=== PATIENT | male | born 1975 | race Caucasian/White ===

== ENCOUNTER 2016-11-08 08:23 | Emergency (ER) | payer OTHER ==
[2016-11-08] MEDS ORDERED: MOTRIN PO ONE (12:54)
--- NOTE | 2016-11-08 12:54 | Emergency Department Report ---
ED Abdominal Pain HPI - General Chief Complaint: Rectal Pain Stated Complaint: HEMORRHOIDS Time Seen by Provider: 11/08/16 12:50 Source: patient, family Mode of arrival: Wheelchair Limitations: Language Barrier - History of Present Illness Initial Comments: Patient reports hemorrhoids that started one week ago and worsening in the last two days. He reports using [id number] Preparation H suppositories and cream, however without any relief Complaint: other (hemorrhoids) Onset/Timin -: week(s) Radiation: other (rectum) Migration to: no migration Severity: severe Severity scale (0 -10): 7 Quality: aching Consistency: constant Improves With: nothing Worsens With: bowel movement, movement Context: other (none) Associated Symptoms: constipation. denies: nausea, vomiting, diarrhea, fever, chills, dysuria, hematemesis, hematochezia, melena, hematuria, anorexia, syncope Treatments Prior to Arrival: other ([id number] Preparation H suppositories and cream) - Related Data Home Medications Medication Instructions Recorded Confirmed Last Taken Butalb/Acetaminophen/Caffeine 1 cap PO Q6HR PRN 11/08/16 11/08/16 Unknown [Fioricet 50-300-40 mg CAP] Previous Rx's Medication Instructions Recorded Last Taken Type Docusate Sodium [Colace] 100 mg PO BID PRN #30 capsule 11/08/16 Unknown Rx Hydrocortisone/Pramoxine [Analpram 4 gm RC QID #1 cream.appl 11/08/16 Unknown Rx Hc 2.5%-1% Crm Single] Ibuprofen [Motrin 800 MG tab] 800 mg PO Q8HR PRN #30 tablet 11/08/16 Unknown Rx Allergies Allergy/AdvReac Type Severity Reaction Status Date / Time No Known Allergies Allergy Unverified 11/08/16 08:46 ED Review of Systems ROS: Stated complaint: HEMORRHOIDS Other details as noted in HPI Constitutional: denies: chills, diaphoresis, fever, malaise, weakness Respiratory: denies: cough, orthopnea, shortness of breath, SOB with exertion, SOB at rest, stridor, wheezing Cardiovascular: denies: chest pain, palpitations, dyspnea on exertion, orthopnea , edema, syncope, paroxysmal nocturnal dyspnea Gastrointestinal: constipation, other (hemorrhoids). denies: abdominal pain, nausea, vomiting, diarrhea Genitourinary: denies: urgency, dysuria, frequency, hematuria, discharge, testicular pain, testicular mass Musculoskeletal: denies: back pain, joint swelling, arthralgia, myalgia Skin: denies: rash, lesions, change in color, change in hair/nails, pruritus ED Past Medical Hx - Past Medical History Hx Headaches / Migraines: Yes - Surgical History Past Surgical History?: No - Social History Smoking Status: Never Smoker Substance Use Type: Alcohol - Medications Home Medications: Home Medications Medication Instructions Recorded Confirmed Last Taken Type Butalb/Acetaminophen/Caffeine 1 cap PO Q6HR PRN 11/08/16 11/08/16 Unknown History [Fioricet 50-300-40 mg CAP] Docusate Sodium [Colace] 100 mg PO BID PRN #30 capsule 11/08/16 Unknown Rx Hydrocortisone/Pramoxine [Analpram 4 gm RC QID #1 cream.appl 11/08/16 Unknown Rx Hc 2.5%-1% Crm Single] Ibuprofen [Motrin 800 MG tab] 800 mg PO Q8HR PRN #30 tablet 11/08/16 Unknown Rx ED Physical Exam - General Limitations: Language Barrier General appearance: alert, in no apparent distress, other (uncomfortable) - ENT ENT exam: Present: normal exam, mucous membranes moist. Absent: mucous membranes dry - Respiratory Respiratory exam: Present: normal lung sounds bilaterally. Absent: respiratory distress, wheezes, rales, rhonchi, stridor, chest wall tenderness, accessory muscle use, decreased breath sounds, prolonged expiratory - Cardiovascular Cardiovascular Exam: Present: regular rate, normal rhythm, normal heart sounds. Absent: systolic murmur, diastolic murmur, rubs, gallop, clicks, JVD, S3, S4 - GI/Abdominal GI/Abdominal exam: Present: soft, normal bowel sounds. Absent: distended, tenderness, guarding, rebound, rigid - Rectal Rectal exam: Present: normal rectal tone, hemorrhoids (first degree, fleshy, no protrusion, prolapse, bleeding or thrombos), tenderness ( rectal area). Absent : black stool, bloody stool, fecal impaction, mass - Back Exam Back exam: Present: normal inspection. Absent: CVA tenderness (R), CVA tenderness (L) - Neurological Exam Neurological exam: Present: alert, oriented X3, CN II-XII intact, normal gait, reflexes normal. Absent: motor sensory deficit - Skin Skin exam: Present: warm, dry, intact, normal color. Absent: rash ED Course Vital Signs 11/08/16 08:40 Temperature 98.1 F Pulse Rate 89 Respiratory 16 Rate Blood Pressure 108/72 O2 Sat by Pulse 100 Oximetry ED Medical Decision Making - Lab Data Vital Signs 11/08/16 08:40 Temperature 98.1 F Pulse Rate 89 Respiratory 16 Rate Blood Pressure 108/72 O2 Sat by Pulse 100 Oximetry - Medical Decision Making During the course of ED, analgesics was ordered. Patient was sent home with prescriptions for Colace, ibuprofen and Analpram HC, instructed to do warm sitz baths with Epsom salt three times a day and after each bowel movement, increase fluid and fiber intake and eat more vegetables and fruits, he verbalized understanding - Differential Diagnosis Hemorrhoids, Rectal Prolapse, Anal fissure Critical care attestation.: If time is entered above; I have spent that time in minutes in the direct care of this critically ill patient, excluding procedure time. ED Disposition Clinical Impression: Hemorrhoids Qualifiers: Hemorrhoid type: first degree Qualified Code(s): K64.0 - First degree hemorrhoids Disposition: DISCHARGED TO HOME OR SELFCARE Is pt being admited?: No Does the pt Need Aspirin: No Condition: Stable Instructions: Hemorrhoids (ED) Additional Instructions: Take medication as directed. Warm sitz baths with Epsom salt for 15 minutes 3 times a day and after each bowel movement. Ear high-fiber diet such as fresh fruits and vegetables and increase bran intake. Drink 8-10 glasses of water per day. Follow up with the selective referrals given at discharge. Return back to the ED for worsening symptoms or concerns Prescriptions: Hydrocortisone/Pramoxine [Analpram Hc 2.5%-1% Crm Single] 4 gm RC QID #1 cream.appl Docusate Sodium [Colace] 100 mg PO BID PRN #30 capsule PRN Reason: Stool Softner Ibuprofen [Motrin 800 MG tab] 800 mg PO Q8HR PRN #30 tablet PRN Reason: Pain Referrals: DANIEL GONZALEZ MD [Staff Physician] - 3-5 Days MEGHANN CHIRINOS MD [Staff Physician] - 3-5 Days Time of Disposition: 13:12
[2016-11-08 14:33] VITALS: BP 110/78
== END 2016-11-08 13:30 | disposition home or self-care (01) ==
LOC: ED 08:23
DX: K64.0 First degree hemorrhoids (principal)
CPT/HCPCS: 99283

== ENCOUNTER 2020-12-21 14:58 | Emergency (ER) | payer MEDICAID, OTHER ==
[2020-12-21] MEDS ORDERED: SODIUM CHLORIDE 0.9% 1000 ML IV SOLN IV ONE (15:06)
--- NOTE | 2020-12-21 15:10 | Event Note ---
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 Further treatment and workup at subsequent clinical providers discretion. Patient/guardian urged not to elope from the ED as their condition may be serious if not clinically assessed and managed. Initial orders include: code sepsis initiated
[2020-12-21] MEDS ORDERED: ACETAMINOPHEN 325 MG TAB PO ONE (15:11)
[2020-12-21 15:34] LABS: Basophils % (Auto) 0.3 % (0.0-1.8); Eosinophils # (Auto) 0.1 K/mm3 (0.0-0.4); Eosinophils % (Auto) 0.4 % (0.0-4.3); Hematocrit 48.5 % (35.5-45.6); Hemoglobin 16.8 gm/dl (11.8-15.2); Lymphocytes # (Auto) 3.2 K/mm3 (1.2-5.4); Lymphocytes % (Auto) 26.3 % (13.4-35.0); Mean Corpuscular HGB Conc 35 % (32-34); Mean Corpuscular Volume 101 fl (84-94); Monocytes # (Auto) 1.3 K/mm3 (0.0-0.8); Monocytes % (Auto) 10.2 % (0.0-7.3); Platelet Count 194 K/mm3 (140-440); Red Blood Count 4.83 M/mm3 (3.65-5.03); Red Cell Distribution Width 14.2 % (13.2-15.2)
--- NOTE | 2020-12-21 15:35 | Emergency Department Report ---
ED General Adult HPI - General Chief complaint: Weakness Stated complaint: weak PUI?: Yes Time Seen by Provider: 12/21/20 15:06 Source: patient Mode of arrival: Ambulatory Limitations: No Limitations - History of Present Illness Initial comments: The patient was evaluated in the emergency department for symptoms described in the history of present illness. He/she was evaluated in the context of the global COVID-19 pandemic, which necessitated consideration that the patient might be at risk for infection with the virus that causes COVID-19. Institutional protocols and algorithms that pertain to the evaluation of patients at risk for COVID-19 are in a state of rapid change based on information released by regulatory bodies including the CDC and federal and state organizations. These policies and algorithms were followed during the patient's care in the emergency department. Please note that these policies, procedures and recommendations changed on a rapid basis. During the entire history and physical examination, I had on complete personal protective equipment. This is a 45-year-old gentleman. 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 He also has a history of HIV, and is currently maintained on genyova He reports he is not currently on chemotherapy or immunosuppressive therapy He presents to the ER today with a complaint of painless dizziness and generalized weakness. No loss of taste or smell. No vomiting, no chest pain, no abdominal pain, no shortness of breath, no dysuria. No lower extremity c ramping. Chronic numbness to his right lower extremity. Does not have sick exposures that he is aware of. Indicates no exacerbating or relieving factors at this time. Denies loss of vision. Denies headache and neck pain. -: Gradual, days(s) Severity scale (0 -10): 6 Consistency: constant Improves with: rest Worsens with: movement - Related Data Previous Rx's Medication Instructions Recorded Last Taken Type Acetaminophen [Non-Aspirin Extra 500 mg PO Q6HR PRN #30 tablet 12/21/20 Unknown Rx Strength] Albuterol Sulfate [Proair 90 mcg IH Q4HR PRN #2 aer.pow.ba 12/21/20 Unknown Rx Respiclick] Ondansetron [Zofran Odt] 4 mg PO Q8HR PRN #20 tab.rapdis 12/21/20 Unknown Rx Allergies Allergy/AdvReac Type Severity Reaction Status Date / Time No Known Allergies Allergy Verified 12/21/20 15:55 ED Review of Systems ROS: Stated complaint: DIZZY/RT LEG SWOLLEN/FEVER Other details as noted in HPI Constitutional: malaise. denies: fever Eyes: denies: eye discharge, vision change ENT: denies: epistaxis Respiratory: denies: cough, shortness of breath Cardiovascular: denies: chest pain Gastrointestinal: denies: abdominal pain Genitourinary: denies: urgency, dysuria, testicular pain Musculoskeletal: myalgia. denies: back pain Neurological: weakness. denies: headache Hematological/Lymphatic: denies: easy bleeding ED Past Medical Hx - Past Medical History Hx Headaches / Migraines: Yes Additional medical history: LEUKMIA/ HIV - Social History Smoking Status: Never Smoker Substance Use Type: Alcohol - Medications Home Medications: Home Medications Medication Instructions Recorded Confirmed Last Taken Type Acetaminophen [Non-Aspirin Extra 500 mg PO Q6HR PRN #30 tablet 12/21/20 Unknown Rx Strength] Albuterol Sulfate [Proair 90 mcg IH Q4HR PRN #2 aer.pow.ba 12/21/20 Unknown Rx Respiclick] Ondansetron [Zofran Odt] 4 mg PO Q8HR PRN #20 tab.rapdis 12/21/20 Unknown Rx ED Physical Exam - General Limitations: No Limitations General appearance: alert, in no apparent distress - Head Head exam: Present: atraumatic, normocephalic - Eye Eye exam: Present: normal appearance, PERRL, EOMI, other (Visual acuity intact to finger counting, color perception, reading at a close distance). Absent: nystagmus - ENT ENT exam: Present: normal exam, normal orophraynx, mucous membranes moist, normal external ear exam - Neck Neck exam: Present: normal inspection, full ROM. Absent: tenderness, meningismus - Respiratory Respiratory exam: Present: normal lung sounds bilaterally. Absent: respiratory distress, wheezes, rales, rhonchi, stridor, decreased breath sounds - Cardiovascular Cardiovascular Exam: Present: normal rhythm, tachycardia, normal heart sounds. Absent: bradycardia, irregular rhythm, systolic murmur, diastolic murmur, rubs, gallop - GI/Abdominal GI/Abdominal exam: Present: soft. Absent: distended, tenderness, guarding, rebound, rigid, pulsatile mass - Rectal Rectal exam: Present: deferred - Extremities Exam Extremities exam: Present: normal inspection, full ROM, other (2+ pulses noted in the bilateral upper and lower extremities. There is no palpable cord. negative Homans sign. Muscular compartments are soft. The pelvis is stable.). Absent: pedal edema, calf tenderness - Back Exam Back exam: Present: normal inspection, full ROM. Absent: tenderness, CVA tenderness (R), CVA tenderness (L), paraspinal tenderness, vertebral tenderness - Neurological Exam Neurological exam: Present: alert, normal gait, motor sensory deficit (Chronic decrease in sensation to light touch in the right lower extremity, from the knee distal. Otherwise, 5 out of 5 strength in 4 extremities, sensation is otherwise intact in 4 extremities to light touch.), other (There is no facial droop. The tongue is midline. The extraocular movements are intact bilaterally. V1, V2, V3 intact bilaterally. Hearing is intact bilaterally, shoulder shrug is intact bilaterally, and the tongue is midline.) - Psychiatric Psychiatric exam: Present: normal affect, normal mood - Skin Skin exam: Present: warm, dry, intact, normal color. Absent: rash ED Course Vital Signs 12/21/20 12/21/20 12/21/20 15:04 15:53 15:55 Temperature 100.8 F H Pulse Rate 122 H 93 H 94 H Respiratory 20 18 Rate Blood Pressure 114/72 97/69 [Right] O2 Sat by Pulse 96 95 Oximetry 12/21/20 12/21/20 16:58 17:37 Temperature Pulse Rate 82 74 Respiratory 20 20 Rate Blood Pressure 101/61 106/68 [Right] O2 Sat by Pulse 97 96 Oximetry - Reevaluation(s) Reevaluation #1: 12/21/20 17:14 Patient did not desaturate during trial of ambulation. Would expect tachycardia during Covid. From a Covid perspective, patient does not meet criteria for admission/hospitalization, he is not not hypoxic, protecting his airway, not encephalopathic, and tolerating liquid feeds. 12/21/20 17:43 urinalysis unremarkable. Tachycardia improved. No hypoxia. Patient appears quite comfortable. Would need to follow-up as an outpatient for repeat checkup/evaluation. ED Medical Decision Making - Lab Data Result diagrams: 12/21/20 15:15 12/21/20 15:15 Vital Signs 12/21/20 12/21/2021 15:04 15:53 15:55 Temperature 100.8 F H Pulse Rate 122 H 93 H 94 H Respiratory 20 18 Rate Blood Pressure 114/72 97/69 [Right] O2 Sat by Pulse 96 95 Oximetry Lab Results 12/21/20 12/21/20 12/21/20 Range/Units 15:15 15:15 15:15 WBC 12.3 H (4.5-11.0) K/mm3 RBC 4.83 (3.65-5.03) M/mm3 Hgb 16.8 H (11.8-15.2) gm/dl Hct 48.5 H (35.5-45.6) % MCV 101 H (84-94) fl MCH 35 H (28-32) pg MCHC 35 H (32-34) % RDW 14.2 (13.2-15.2) % Plt Count 194 (140-440) K/mm3 Lymph % (Auto) 26.3 (13.4-35.0) % [place] % (Auto) 10.2 H (0.0-7.3) % Eos % (Auto) 0.4 (0.0-4.3) % Baso % (Auto) 0.3 (0.0-1.8) % Lymph # (Auto) 3.2 (1.2-5.4) K/mm3 [place] # (Auto) 1.3 H (0.0-0.8) K/mm3 Eos # (Auto) 0.1 (0.0-0.4) K/mm3 Baso # (Auto) 0.0 (0.0-0.1) K/mm3 Seg Neutrophils % 62.8 (40.0-70.0) % Seg Neutrophils # 7.7 (1.8-7.7) K/mm3 Sodium 134 L (137-145) mmol/L Potassium 3.9 (3.6-5.0) mmol/L Chloride 98.6 (98-107) mmol/L Carbon Dioxide 25 (22-30) mmol/L Anion Gap 14 mmol/L BUN 22 H (9-20) mg/dL Creatinine 1.2 (0.8-1.3) mg/dL Estimated GFR > 60 ml/min BUN/Creatinine Ratio 18 % Glucose 112 H (75-100) mg/dL Lactic Acid 1.20 (0.7-2.0) mmol/L Calcium 8.7 (8.4-10.2) mg/dL Total Bilirubin 0.60 (0.1-1.2) mg/dL AST 12 (5-40) units/L ALT 10 (7-56) units/L Alkaline Phosphatase 54 (35-129) units/L Total Protein 7.3 (6.3-8.2) g/dL Albumin 3.9 (3.9-5) g/dL Albumin/Globulin Ratio 1.1 % - EKG Data -: EKG Interpreted by Mo - EKG Data 12/21/20 16:10 The EKG today shows a sinus rhythm, tachycardia, 104 bpm. There is a normal axis, with motion artifact, QTC within normal limits, the EKG is not a STEMI, t here is borderline high left ventricular voltage. - Radiology Data Radiology results: pending, report reviewed, image reviewed NONENHANCED CT SCAN OF THE HEAD: INDICATION / CLINICAL INFORMATION: 45 years Male; dizzy and wweak. TECHNIQUE: Routine CT head without contrast. All CT scans at this location are performed using CT dose reduction for ALARA by means of automated exposure control. COMPARISON: None. FINDINGS: BRAIN / INTRACRANIAL CONTENTS: No acute hemorrhage, mass effect, midline shift, hydrocephalus, or acute, large territorial infarct. No chronic infarct or focal atrophy. Normal brain volume and ventricular/sulcal size for age. No significant white matter abnormality. CRANIOCERVICAL JUNCTION: No significant abnormality. ORBITS: No significant abnormality of visualized orbits. SINUSES / MASTOIDS: No significant abnormality of the visualized paranasal sinuses or mastoid air cells. ADDITIONAL FINDINGS: None. IMPRESSION: No acute focal parenchymal lesion Signer Name: Katarina Lucas MD Signed: 12/21/2020 2:54 PM Workstation Name: [id number] CHEST 1 VIEW 1534 INDICATION / CLINICAL INFORMATION: dizziness, fever, sepsis protocol COMPARISON: None available. FINDINGS: SUPPORT DEVICES: None HEART / MEDIASTINUM: No significant abnormality. LUNGS / PLEURA: No significant pulmonary or pleural abnormality. No pneumothorax. ADDITIONAL FINDINGS: No significant additional findings. IMPRESSION: No significant acute abnormality Signer Name: Hank Win MD Signed: 12/21/2020 2:48 PM Workstation Name: [id number] - Medical Decision Making Differential diagnosis, including but not limited to: Viral syndrome, pneumonia, urinary tract infection, COVID-19, HIV positive, history of leukemia, chronic right lower extremity neuropathy Assessment and plan: 45-year-old gentleman, who is febrile, low-grade, with tachycardia, now resolved, presenting during the COVID-19 pandemic, with complai nt of malaise, fatigue and dizziness. He walks with a steady gait, has a GCS of 15, NIH score of 0, no past-pointing, no pronator drift, normal gait, normal [id number], with unremarkable laboratory studies. Given history of HIV leukemia, CT scan of the brain was obtained, to evaluate for structural disease, and was unremarkable. X-ray of the chest is unremarkable. Urinalysis is pending at this time. Patient denies chills and rigors therefore I think bacteremia is very unlikely. He also reports that he is compliant with his antiviral therapy. Patient will be maintained on isolation precautions. He will be given fluids and acetaminophen. I have requested that nursing team reconcile his medications. We will also provide a 5-minute ambulation test on room air to assess patient's O2 sats. Critical care attestation.: If time is entered above; I have spent that time in minutes in the direct care of this critically ill patient, excluding procedure time. ED Disposition Clinical Impression: Acute febrile illness, Suspected 2019 novel coronavirus infection Disposition: DC-01 TO HOME OR SELFCARE Is pt being admited?: No Does the pt Need Aspirin: No Condition: Good Instructions: COVID-19 Additional Instructions: As we discussed, the patient most likely has novel coronavirus/COVID. the symptoms of COVID will typically persist 10 to 14 days. There is no cure at this time for COVID. Please make certain to self isolate and self quarantine, follow-up with an outpatient primary care doctor within the next 3 to 5 days, wash hands with soap and water frequently, thoroughly and often, patient may take the prescribed medications as needed and directed. Advance diet and drink plenty of fluids as tolerated. Avoid interactions with the very elderly, very young, and those with chronic medical conditions. Return to the emergency room right away with new pain, worsening pain, migration of pain, projectile vomiting, change in mental status, confusion, inability to tolerate liquid feeds, new, worsened or different symptoms not present on the initial emergency room evaluation. Prescriptions: Acetaminophen [Non-Aspirin Extra Strength] 500 mg PO Q6HR PRN #30 tablet PRN Reason: Pain , Severe (7-10) Albuterol Sulfate [Proair Respiclick] 90 mcg IH Q4HR PRN #2 aer.pow.ba PRN Reason: Wheezing Ondansetron [Zofran Odt] 4 mg PO Q8HR PRN #20 tab.rapdis PRN Reason: Nausea Referrals: [facility] [Provider Group] - 3-5 Days
--- NOTE | 2020-12-21 15:52 | XRay Report ---
CHEST 1 VIEW 1534 INDICATION / CLINICAL INFORMATION: dizziness, fever, sepsis protocol COMPARISON: None available. FINDINGS: SUPPORT DEVICES: None HEART / MEDIASTINUM: No significant abnormality. LUNGS / PLEURA: No significant pulmonary or pleural abnormality. No pneumothorax. ADDITIONAL FINDINGS: No significant additional findings. IMPRESSION: No significant acute abnormality Signer Name: Hank Win MD Signed: 12/21/2020 3:48 PM Workstation Name: [id number]
--- NOTE | 2020-12-21 15:59 | Cat Scan Report ---
NONENHANCED CT SCAN OF THE HEAD: INDICATION / CLINICAL INFORMATION: 45 years Male; dizzy and wweak. TECHNIQUE: Routine CT head without contrast. All CT scans at this location are performed using CT dos e reduction for ALARA by means of automated exposure control. COMPARISON: None. FINDINGS: BRAIN / INTRACRANIAL CONTENTS: No acute hemorrhage, mass effect, midline shift, hydrocephalus, or acu te, large territorial infarct. No chronic infarct or focal atrophy. Normal brain volume and ventricul ar/sulcal size for age. No significant white matter abnormality. CRANIOCERVICAL JUNCTION: No significant abnormality. ORBITS: No significant abnormality of visualized orbits. SINUSES / MASTOIDS: No significant abnormality of the visualized paranasal sinuses or mastoid air ynes ls. ADDITIONAL FINDINGS: None. IMPRESSION: No acute focal parenchymal lesion Signer Name: Katarina Lucas MD Signed: 12/21/2020 3:54 PM Workstation Name: [id number]
[2020-12-21 16:01] LABS: Alanine Aminotransferase 10 units/L (7-56); Albumin 3.9 g/dL (3.9-5); BUN/Creatinine Ratio 18; Blood Urea Nitrogen 22 mg/dL (9-20); Calcium 8.7 mg/dL (8.4-10.2); Hemolysis Index 7
[2020-12-21] MEDS ORDERED: LACTATED RINGERS 2,000 ML IV ONE (16:17)
[2020-12-21 17:26] LABS: Bilirubin,Urine NEG (Negative); Blood,Urine SM (Negative); Color,Urine Amber (Yellow); Hyaline Casts,Urine 1 /LPF; Mucus,Urine 2+ /HPF
[2020-12-21 18:36] VITALS: BP 107/69
== END 2020-12-21 18:51 | disposition home or self-care (01) ==
LOC: ED 14:58
DX: R50.9 Fever, unspecified (principal); Z20.822 Contact with and (suspected) exposure to COVID-19; G43.909 Migraine, unspecified, not intractable, without status migrainosus; Z79.899 Other long term (current) drug therapy
CPT/HCPCS: 36415; 70450; 71045; 80053; 81001; 82140; 82550; 83735; 85025; 96360; 99285; J7030; 93005

== ENCOUNTER 2022-02-22 07:03 | Emergency (ER) | payer MEDICAID ==
[2022-02-22] MEDS ORDERED: dexAMETHasone 20 MG/5 ML VIAL IV ONE (10:20)
[2022-02-22] MEDS ORDERED: METOCLOPRAMIDE 10 MG/2 ML INJ IV ONE (10:20)
[2022-02-22] MEDS ORDERED: ACETAMINOPHEN 500 MG TAB PO ONE (10:20)
[2022-02-22] MEDS ORDERED: SODIUM CHLORIDE 0.9% 1000 ML 1,000 ML IV ONE (10:20)
[2022-02-22] MEDS ORDERED: diphenhydrAMINE 50 MG/ML VIAL IV ONE (10:20)
--- NOTE | 2022-02-22 10:25 | Emergency Department Report ---
ED General Adult HPI - General Chief complaint: Headache Stated complaint: HEADACHE/DIZZINESS Time Seen by Provider: 02/22/22 10:19 Source: patient Mode of arrival: Ambulatory Limitations: No Limitations - History of Present Illness Initial comments: Patient 46-year-old male with history of hypertension, leukemia, HIV. Presents for chest pain dizziness headache for the past 3 days. Headache is occipital this is a common location for his headache intensity and duration are concurrent with previous headaches. Patient denies mild photophobia some nausea. Patient denies cough fever chills however does endorse malaise and chest aches patient denies cough. Patient denies smoking, patient states adherent with medications. Symptoms are exacerbated by activity. Symptoms are relieved by nothing tried. Severity scale (0 -10): 9 - Related Data Previous Rx's Medication Instructions Recorded Last Taken Type Acetaminophen [Non-Aspirin Extra 500 mg PO Q6HR PRN #30 tablet 12/21/20 Unknown Rx Strength] Albuterol Sulfate [Proair 90 mcg IH Q4HR PRN #2 aer.pow.ba 12/21/20 Unknown Rx Respiclick] Ondansetron [Zofran Odt] 4 mg PO Q8HR PRN #20 tab.rapdis 12/21/20 Unknown Rx Acetaminophen 1,000 mg PO Q6H PRN #30 cap 02/22/22 Unknown Rx Metoclopramide [Reglan] 10 mg PO Q8H PRN #30 tablet 02/22/22 Unknown Rx diphenhydrAMINE [Benadryl CAP] 25 mg PO Q8HR PRN #30 capsule 02/22/22 Unknown Rx Allergies Allergy/AdvReac Type Severity Reaction Status Date / Time No Known Allergies Allergy Verified 12/21/20 15:55 ED Review of Systems ROS: Stated complaint: HEADACHE/DIZZINESS Other details as noted in HPI Constitutional: malaise Eyes: other (photophobia ). denies: eye pain, eye discharge, vision change ENT: as per HPI. denies: ear pain, throat pain, congestion Respiratory: no symptoms reported. denies: cough, shortness of breath, wheezing Cardiovascular: chest pain. denies: palpitations, dyspnea on exertion, syncope, paroxysmal nocturnal dyspnea Endocrine: no symptoms reported Gastrointestinal: nausea. denies: vomiting, diarrhea, constipation Genitourinary: denies: urgency, dysuria, frequency, hematuria Musculoskeletal: denies: back pain, joint swelling, arthralgia Skin: denies: rash, lesions Neurological: headache, vertigo. denies: weakness, numbness, paresthesias, confusion Psychiatric: denies: anxiety, depression Hematological/Lymphatic: denies: easy bleeding, easy bruising ED Past Medical Hx - Past Medical History Hx Headaches / Migraines: Yes Additional medical history: LEUKMIA/ HIV - Social History Smoking Status: Never Smoker Substance Use Type: Alcohol - Medications Home Medications: Home Medications Medication Instructions Recorded Confirmed Last Taken Type Acetaminophen [Non-Aspirin Extra 500 mg PO Q6HR PRN #30 tablet 12/21/20 Unknown Rx Strength] Albuterol Sulfate [Proair 90 mcg IH Q4HR PRN #2 aer.pow.ba 12/21/20 Unknown Rx Respiclick] Ondansetron [Zofran Odt] 4 mg PO Q8HR PRN #20 tab.rapdis 12/21/20 Unknown Rx Acetaminophen 1,000 mg PO Q6H PRN #30 cap 02/22/22 Unknown Rx Metoclopramide [Reglan] 10 mg PO Q8H PRN #30 tablet 02/22/22 Unknown Rx diphenhydrAMINE [Benadryl CAP] 25 mg PO Q8HR PRN #30 capsule 02/22/22 Unknown Rx ED Physical Exam - General Limitations: No Limitations General appearance: alert - Head Head exam: Present: normocephalic, normal inspection - Eye Eye exam: Present: normal appearance, PERRL, EOMI. Absent: conjunctival injection, nystagmus Pupils: Present: normal accommodation - ENT ENT exam: Present: normal exam, normal orophraynx, mucous membranes moist, TM's normal bilaterally, normal external ear exam - Neck Neck exam: Present: normal inspection, full ROM. Absent: tenderness, meningismus, lymphadenopathy - Respiratory Respiratory exam: Present: normal lung sounds bilaterally. Absent: respiratory distress, wheezes, stridor, chest wall tenderness - Cardiovascular Cardiovascular Exam: Present: regular rate, normal rhythm, normal heart sounds. Absent: systolic murmur, diastolic murmur, rubs, gallop - GI/Abdominal GI/Abdominal exam: Present: soft, normal bowel sounds. Absent: distended, tenderness, guarding, rebound, rigid, bruit, hernia - Rectal Rectal exam: Present: deferred - Extremities Exam Extremities exam: Present: normal inspection, full ROM, normal capillary refill - Back Exam Back exam: Present: normal inspection, full ROM. Absent: CVA tenderness (R), CVA tenderness (L) - Neurological Exam Neurological exam: Present: alert, oriented X3, CN II-XII intact, normal gait. Absent: motor sensory deficit - Expanded Neurological Exam Expanded Patient oriented to: Present: person, place, time Speech: Present: fluid speech Cranial nerves: EOM's Intact: Normal Motor strength exam: RUE: 5, LUE: 5, RLE: 5, LLE: 5 Best Eye Response ([place]): (4) open spontaneously Best Motor Response ([place]): (6) obeys commands Best Verbal Response ([place]): (5) oriented [place] Total: 15 - Psychiatric Psychiatric exam: Present: normal affect, normal mood - Skin Skin exam: Present: warm, dry, intact, normal color ED Course Vital Signs 02/22/22 10:04 Temperature 98.7 F Pulse Rate 94 H Respiratory 18 Rate Blood Pressure 108/80 [Right] O2 Sat by Pulse 97 Oximetry ED Medical Decision Making - Lab Data Result diagrams: 02/22/22 10:11 02/22/22 10:11 - EKG Data EKG shows normal: sinus rhythm, axis, intervals, QRS complexes, ST-T waves Rate: normal - EKG Data When compared to previous EKG there are: previous EKG unavailable Interpretation: normal EKG (NSR NSTEMI interp by ed attending. ) - Radiology Data Radiology results: report reviewed, image reviewed CHEST 2 VIEWS INDICATION / CLINICAL INFORMATION: chest pain dizziness. COMPARISON: 12/21/2020 FINDINGS: SUPPORT DEVICES: None. HEART / MEDIASTINUM: No significant abnormality. LUNGS / PLEURA: No significant pulmonary or pleural abnormality. No pneumothorax. ADDITIONAL FINDINGS: No significant additional findings. IMPRESSION: 1. No acute findings. Signer Name: Theron Sanon MD Signed: 02/22/2022 11:22 AM Workstation Name: [id number] Transcribed By: DB Dictated By: THERON SANON MD Electronically Authenticated By: THERON SANON MD Signed Date/Time: 02/22/22 112 DD/ 1121 TD/TT: - Medical Decision Making X-ray normal infiltrates no opacities, EKG normal sinus rhythm no ST elevated WA interpreted by ED attending, heart score is 0, AN score is 0, patient advises headache is totally resolved at this time. States he is ready for discharge. Given follow-up exam is a reasonable choice. Vital signs are improved. Headache is gone. There are no neurodeficits at this time no chest pain no shortness of breath. Patient will be DC'd home in stable condition at this time. We will follow-up with his primary care doctor in 1 to 2 days. Critical care attestation.: If time is entered above; I have spent that time in minutes in the direct care of this critically ill patient, excluding procedure time. ED Disposition Clinical Impression: Dizziness Headache Qualifiers: Headache type: unspecified Headache chronicity pattern: unspecified pattern Intractability: not intractable Qualified Code(s): R51.9 - Headache, unspecified Disposition: 01 HOME / SELF CARE / HOMELESS Is pt being admited?: No Does the pt Need Aspirin: No Condition: Stable Instructions: Dizziness, Tension Headache, Adult Additional Instructions: Take medication as prescribed, follow-up with your doctor in 1 to 2 days. Return to emergency department should symptoms worsen. Prescriptions: Acetaminophen 1,000 mg PO Q6H PRN #30 cap PRN Reason: Headache diphenhydrAMINE [Benadryl CAP] 25 mg PO Q8HR PRN #30 capsule PRN Reason: headche Metoclopramide [Reglan] 10 mg PO Q8H PRN #30 tablet PRN Reason: Headache Referrals: PRIMARY MD LAZARO [Primary Care Provider] - 3-5 Days AUSTEN MCNAIR MD [Staff Physician] - 3-5 Days GEETA MELGOZA MD [Staff Physician] - 3-5 Days Forms: Work/School Release Form(ED) Time of Disposition: 12:19
--- NOTE | 2022-02-22 11:26 | XRay Report ---
CHEST 2 VIEWS INDICATION / CLINICAL INFORMATION: chest pain dizziness. COMPARISON: 12/21/2020 FINDINGS: SUPPORT DEVICES: None. HEART / MEDIASTINUM: No significant abnormality. LUNGS / PLEURA: No significant pulmonary or pleural abnormality. No pneumothorax. ADDITIONAL FINDINGS: No significant additional findings. IMPRESSION: 1. No acute findings. Signer Name: Theron Sanon MD Signed: 02/22/2022 11:22 AM Workstation Name: [id number]
[2022-02-22 11:44] LABS: Alanine Aminotransferase 30 units/L (7-56); Albumin 4.6 g/dL (3.9-5); BUN/Creatinine Ratio 19; Blood Urea Nitrogen 19 mg/dL (9-20); Calcium 9.6 mg/dL (8.4-10.2); Hemolysis Index 27
[2022-02-22 11:54] LABS: Basophils % (Auto) 0.5 % (0.0-1.8); Eosinophils # (Auto) 0.1 K/mm3 (0.0-0.4); Eosinophils % (Auto) 0.8 % (0.0-4.3); Hematocrit 50.1 % (35.5-45.6); Lymphocytes # (Auto) 1.6 K/mm3 (1.2-5.4); Lymphocytes % (Auto) 16.1 % (13.4-35.0); Mean Corpuscular HGB Conc 34 % (32-34); Mean Corpuscular Volume 101 fl (84-94); Monocytes # (Auto) 0.8 K/mm3 (0.0-0.8); Monocytes % (Auto) 8.4 % (0.0-7.3); Red Blood Count 4.96 M/mm3 (3.65-5.03); Red Cell Distribution Width 14.3 % (13.2-15.2)
[2022-02-22 11:55] LABS: Platelet Count 103 K/mm3 (140-440)
[2022-02-22 12:46] VITALS: BP 124/78
--- NOTE | 2022-02-24 13:29 | Electrocardiograph Report ---
[facility] Test Date: 2022-02-22 Test Time: 10:11:04 Pat Name: BRIANNE BERGERON Department: Room: Gender: M [employer] Curator: NORMA : 1975 Requested By: CARLOS MARTINEZ Order Number: [id number] Reading MD: Jacinda Palomares Measurements Intervals Calder Rate: 80 P: 41 NE: 136 QRS: 23 QRSD: 93 T: 28 QT: 365 QTc: 422 Interpretive Statements Sinus rhythm No previous ECG available for comparison Electronically Signed On 02-24-2022 13:28:19 EDT by Jacinda Palomares
== END 2022-02-22 12:45 | disposition home or self-care (01) ==
LOC: ED 07:03
DX: R42 Dizziness and giddiness (principal); G43.909 Migraine, unspecified, not intractable, without status migrainosus; Z79.899 Other long term (current) drug therapy
CPT/HCPCS: 36415; 71046; 80053; 84484; 85025; 93005; 96361; 96374; 96375; 99284; J1100; J1200; J2765; J7030